=== PATIENT | female | born 1995 | race Caucasian/White ===

== ENCOUNTER 2020-08-15 18:41 | Emergency (ER) | payer OTHER ==
[2020-08-15 19:16] LABS: BASOPHIL 0.5 % (0-2); EOSINOPHIL 3.9 % (0-5); HCT 40.1 % (37.0-47.0); HGB 13.5 g/dl (12.5-16.0); LYMPHOCYTE 31.7 % (15-48); MCH 31.9 pg (25.0-31.0); MCHC 33.7 g/dL (32.0-36.0); MCV 94.8 fL (78.0-100.0); MONOCYTE 7.8 % (0-12); MPV 12.1 fL (6.0-9.5); NEUTROPHIL 55.9 % (41-80); NRBC 0; PLT 148 K/uL (150-400); RBC 4.23 M/uL (4.20-5.40); RDW 11.9 % (11.5-14.0); WBC 5.7 K/uL (4.0-10.5)
[2020-08-15 19:32] LABS: ALBUMIN 3.2 g/dL (3.4-5.0); BILIRUBIN - TOTAL 0.2 mg/dL (0.2-1.0); BUN/CREAT RATIO (CALC) 27.4 RATIO; CREATININE 0.62 mg/dL (0.51-0.95); DEPAKENE/VALPROIC ACID 103.9 ug/mL (50.0-100.0); MAGNESIUM 1.5 mg/dL (1.8-2.4); POTASSIUM 3.9 mmol/L (3.5-5.1); TOTAL PROTEIN 7.2 g/dL (6.4-8.2)
[2020-08-15 22:30] LABS: BILIRUBIN NEGATIVE (NEGATIVE); BLOOD NEGATIVE Ery/uL (NEGATIVE); CLARITY CLEAR (CLEAR); COLOR YELLOW (YELLOW); GLUCOSE (U) NORMAL (NORMAL); LEUKOCYTES NEGATIVE Leu/uL (NEGATIVE); NITRITE NEGATIVE (NEGATIVE); PROTEIN NEGATIVE (NEGATIVE); SPECIFIC GRAVITY 1.025 (1.001-1.030)
== END 2020-08-16 01:44 | disposition other institution (70) ==
LOC: FER 18:41
PROVIDERS: Emergency Medicine Emergency Medical Services
DX: G40.109 Localization-related (focal) (partial) symptomatic epilepsy and epileptic syndromes with simple partial seizures, not intractable, without status epilepticus (principal); Z79.899 Other long term (current) drug therapy; Z88.8 Allergy status to other drugs, medicaments and biological substances
CPT/HCPCS: 36415; 80053; 80164; 81003; 83735; 85025; 93005; J2060; J7030

== ENCOUNTER 2020-09-10 18:40 | Emergency (ER) | payer OTHER | END 2020-09-10 20:30 | disposition other institution (70) | LOC: FER 18:40 | DX: G40.909 Epilepsy, unspecified, not intractable, without status epilepticus (principal); Z88.8 Allergy status to other drugs, medicaments and biological substances | CPT/HCPCS: J2060 ==

== ENCOUNTER 2021-01-24 18:12 | Emergency (ER) | payer OTHER ==
[2021-01-24 19:37] LABS: BASOPHIL 0.2 % (0-2); EOSINOPHIL 0.1 % (0-5); HCT 40.4 % (37.0-47.0); HGB 12.7 g/dl (12.5-16.0); MCH 25.7 pg (25.0-31.0); MCHC 31.4 g/dL (32.0-36.0); MCV 81.8 fL (78.0-100.0); MONOCYTE 5.1 % (0-12); MPV 11.5 fL (6.0-9.5); NEUTROPHIL 89.7 % (41-80); NRBC 0; PLT 244 K/uL (150-400); RBC 4.94 M/uL (4.20-5.40); RDW 17.6 % (11.5-14.0); WBC 16.2 K/uL (4.0-10.5)
[2021-01-24 19:49] LABS: INR 1.12 (0.9-1.2); PROTHROMBIN TIME 13.8 SECONDS (11.8-13.4); PTT 33.9 SECONDS (24.4-34.7)
[2021-01-24 19:54] LABS: ALBUMIN 3.1 g/dL (3.4-5.0); BILIRUBIN - TOTAL 0.2 mg/dL (0.2-1.0); BUN/CREAT RATIO (CALC) 36.7 RATIO; CREATININE 0.3 mg/dL (0.51-0.95); GLOBULIN (CALCULATION) 4.7 g/dL; MAGNESIUM 1.3 mg/dL (1.8-2.4); POTASSIUM 3.8 mmol/L (3.5-5.1); TOTAL PROTEIN 7.8 g/dL (6.4-8.2)
[2021-01-24] MEDS ORDERED: KEFLEX250 MG/5 M PO (22:36)
[2021-01-24] MEDS ORDERED: CLINDAMYCI75 MG/5 M1 GT (22:36)
== END 2021-01-24 23:19 | disposition home or self-care (01) ==
LOC: FER 18:12
PROVIDERS: Emergency Medicine
DX: R06.02 Shortness of breath (principal); Z20.822 Contact with and (suspected) exposure to COVID-19; Z88.8 Allergy status to other drugs, medicaments and biological substances
CPT/HCPCS: 36415; 71045; 80053; 83735; 84145; 85025; 85610; 85730; 87040; J2543; U0002

== ENCOUNTER 2021-03-25 11:59 | Emergency (ER) | payer OTHER ==
[~2021-03-25 11:59] MED LIST: CLINDAMYCI75 MG/5 M1 GT; KEFLEX250 MG/5 M PO
[2021-03-25 13:39] LABS: BASOPHIL 0.2 % (0-2); EOSINOPHIL 0.5 % (0-5); HCT 45.8 % (37.0-47.0); LYMPHOCYTE 13.1 % (15-48); MCH 29.5 pg (25.0-31.0); MCHC 32.8 g/dL (32.0-36.0); MCV 90.2 fL (78.0-100.0); MONOCYTE 7.4 % (0-12); MPV 12.9 fL (6.0-9.5); NEUTROPHIL 78.5 % (41-80); NRBC 0; PLT 200 K/uL (150-400); RBC 5.08 M/uL (4.20-5.40); RDW 18.1 % (11.5-14.0)
[2021-03-25 13:55] LABS: ALBUMIN 3.6 g/dL (3.4-5.0); BILIRUBIN - TOTAL 0.2 mg/dL (0.2-1.0); CREATININE 0.36 mg/dL (0.51-0.95); GLOBULIN (CALCULATION) 4.8 g/dL; POTASSIUM 4.3 mmol/L (3.5-5.1); TOTAL PROTEIN 8.4 g/dL (6.4-8.2)
[2021-03-25 13:57] LABS: LACTIC ACID 1.1 mmol/L (0.4-1.9)
[2021-03-25 14:41] LABS: BILIRUBIN NEGATIVE (NEGATIVE); BLOOD NEGATIVE Ery/uL (NEGATIVE); CLARITY CLEAR (CLEAR); COLOR YELLOW (YELLOW); GLUCOSE (U) NORMAL (NORMAL); LEUKOCYTES NEGATIVE Leu/uL (NEGATIVE); NITRITE NEGATIVE (NEGATIVE); PROTEIN NEGATIVE (NEGATIVE); UROBILINOGEN 0.2 mg/dL (0.2-1.0)
== END 2021-03-25 16:44 | disposition home or self-care (01) ==
LOC: FER 11:59
PROVIDERS: Emergency Medicine
DX: B34.9 Viral infection, unspecified (principal); Z20.822 Contact with and (suspected) exposure to COVID-19; Z88.1 Allergy status to other antibiotic agents
CPT/HCPCS: 36415; 36600; 71045; 80053; 81003; 82803; 83605; 84145; 85025; 87040; 87088; 94762; U0002

== ENCOUNTER 2021-08-20 21:34 | Emergency (ER) | payer OTHER ==
[2021-08-20 23:04] LABS: BASOPHIL 0.5 % (0-2); EOSINOPHIL 2.4 % (0-5); HCT 47.8 % (37.0-47.0); HGB 15.9 g/dl (12.5-16.0); LYMPHOCYTE 25.7 % (15-48); MCH 32.4 pg (25.0-31.0); MCHC 33.3 g/dL (32.0-36.0); MCV 97.6 fL (78.0-100.0); MONOCYTE 6.9 % (0-12); MPV 12.1 fL (6.0-9.5); NRBC 0; PLT 197 K/uL (150-400); RDW 13.3 % (11.5-14.0); WBC 4.2 K/uL (4.0-10.5)
[2021-08-20 23:10] LABS: BILIRUBIN NEGATIVE (NEGATIVE); BLOOD NEGATIVE Ery/uL (NEGATIVE); CLARITY CLEAR (CLEAR); COLOR YELLOW (YELLOW); GLUCOSE (U) NORMAL (NORMAL); LEUKOCYTES NEGATIVE Leu/uL (NEGATIVE); NITRITE NEGATIVE (NEGATIVE); PROTEIN NEGATIVE (NEGATIVE); SPECIFIC GRAVITY 1.015 (1.001-1.030); UROBILINOGEN 0.2 mg/dL (0.2-1.0); pH 7.5 (5.0-9.0)
[2021-08-20 23:22] LABS: ALBUMIN 2.8 g/dL (3.4-5.0); BILIRUBIN - TOTAL 0.1 mg/dL (0.2-1.0); BUN/CREAT RATIO (CALC) 53.8 RATIO; CREATININE 0.26 mg/dL (0.51-0.95); GLOBULIN (CALCULATION) 4.8 g/dL; POTASSIUM 5.1 mmol/L (3.5-5.1); TOTAL PROTEIN 7.6 g/dL (6.4-8.2)
[2021-08-20 23:27] LABS: LACTIC ACID 2.3 mmol/L (0.4-1.9)
[2021-08-20 23:50] LABS: INFLUENZA A NAA NEGATIVE (NEGATIVE)
[2021-08-20 23:52] LABS: CORONAVIRUS 2019 SARS-COV-2 POSITIVE (NEGATIVE)
== END 2021-08-21 10:33 | disposition other institution (70) ==
LOC: FER 21:34
PROVIDERS: Internal Medicine
DX: A41.9 Sepsis, unspecified organism (principal); R65.20 Severe sepsis without septic shock; J96.01 Acute respiratory failure with hypoxia; U07.1 COVID-19; J12.82 Pneumonia due to coronavirus disease 2019; T68.XXXA Hypothermia, initial encounter; K59.00 Constipation, unspecified; G40.909 Epilepsy, unspecified, not intractable, without status epilepticus; Z23 Encounter for immunization; Z79.899 Other long term (current) drug therapy
CPT/HCPCS: 36415; 36600; 71250; 74018; 80053; 81003; 82803; 83605; 83690; 83880; 84145; 84443; 85025; 87040; 87070; 87205; 96365; 96367; 96375; 96376; C1751; C9113; C9399; J1100; J1650; J2060; J2543; J7030; J7050; U0002

== ENCOUNTER 2021-09-18 13:39 | Inpatient (IN) | payer OTHER ==
[~2021-09-18] VITALS: Ht 175.3 cm; Wt 96.8 kg
[2021-09-18 15:02] LABS: ALBUMIN 2.9 g/dL (3.4-5.0); BILIRUBIN - TOTAL 0.3 mg/dL (0.2-1.0); BUN/CREAT RATIO (CALC) 35.7 RATIO; CREATININE 0.42 mg/dL (0.51-0.95); GLOBULIN (CALCULATION) 5.3 g/dL; POTASSIUM 4.6 mmol/L (3.5-5.1); TOTAL PROTEIN 8.2 g/dL (6.4-8.2)
[2021-09-18 15:09] LABS: BASOPHIL 0.2 % (0-2); EOSINOPHIL 0 % (0-5); HCT 45.5 % (37.0-47.0); HGB 15.1 g/dl (12.5-16.0); LYMPHOCYTE 1.9 % (15-48); MCH 31.9 pg (25.0-31.0); MCHC 33.2 g/dL (32.0-36.0); MCV 96.2 fL (78.0-100.0); MONOCYTE 3.7 % (0-12); MPV 11.9 fL (6.0-9.5); NEUTROPHIL 93.5 % (41-80); NRBC 0; PLT 255 K/uL (150-400); RBC 4.73 M/uL (4.20-5.40); RDW 13.3 % (11.5-14.0)
[2021-09-18 15:16] LABS: WBC 25.7 K/uL (4.0-10.5)
[2021-09-18 15:22] LABS: LACTIC ACID 2.4 mmol/L (0.4-1.9)
[2021-09-18 17:41] LABS: BAND 6 % (0-10); LYMPHOCYTE(M) 1 % (15-48); MONOCYTE(M) 1 % (0-12); NEUTROPHILS(M) 92 % (41-80); TOTAL CELL COUNT 100
[2021-09-18 17:42] LABS: PLATELET ESTIMATE NORMAL; PLATELET MORPHOLOGY NORMAL
[2021-09-18 18:36] LABS: BILIRUBIN NEGATIVE (NEGATIVE); BLOOD NEGATIVE Ery/uL (NEGATIVE); CLARITY CLEAR (CLEAR); COLOR YELLOW (YELLOW); GLUCOSE (U) 2+ mg/dL (NORMAL); LEUKOCYTES NEGATIVE Leu/uL (NEGATIVE); NITRITE NEGATIVE (NEGATIVE); PROTEIN 2+ mg/dL (NEGATIVE); UROBILINOGEN 0.2 mg/dL (0.2-1.0)
[2021-09-18 19:10] LABS: BACTERIA TRACE
[2021-09-18 19:11] LABS: TRANSITIONAL EPITHELIAL CELLS RARE
[2021-09-19] MEDS ORDERED: LOPRESSOR25 MG GT (00:41)
[2021-09-19] MEDS ORDERED: BRIVIACT100 MG GT (00:45)
[2021-09-19] MEDS ORDERED: VIMPAT200 MG GT (00:46)
[2021-09-19] MEDS ORDERED: STOOL SOFTENER100 M1 GT (00:48)
[2021-09-19] MEDS ORDERED: CLONAZEPAM 1MG T1 MG GT (00:49)
[2021-09-19] MEDS ORDERED: ATIVAN1 MG GT (01:52)
[2021-09-19] MEDS ORDERED: MIRALAX17 GM PO (01:53)
[2021-09-19] MEDS ORDERED: MELATONIN5 M2 GT (01:53)
[2021-09-19] MEDS ORDERED: FYCOMPA8 MG GT (01:54)
[2021-09-19] MEDS ORDERED: DILANTIN 1125 MG/5 M GT ×2 (01:55→01:58)
[2021-09-19] MEDS ORDERED: PHENOBARBITAL30 MG GT (01:55)
[2021-09-19] MEDS ORDERED: MODAFINIL100 MG GT (01:56)
[2021-09-19] MEDS ORDERED: OSTERA TABLET1 EACH GT (01:57)
[2021-09-19] MEDS ORDERED: CLOBAZAM10 MG GT (01:58)
--- NOTE | 2021-09-19 10:14 | NUR ---
09/19/21 Ms. Worley Is a single 25 y/o woman admitted with dx of COVID pneumonia. 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 She lives with her mother, Abbey Daniel, . Ms. Worley has: feeding tube, neck brace, wc, ramps, accessible van / bathroom, stair lift, specialty bed, wc, suction machine, precussion vest, 02 at 2 L , and portable tanks. She is receiving services from [facility] - [facility] program. She has the Community Based Waiver and is the on the waiting list for [facility]gar[facility]. Case management is provided through [facility]. - Ms. Worley has requested assistance is getting a pulse-oximeter alarm. - [facility] does not stock this item. However, they will inquire if they can get the alarm. - Ms. Daniel was provided with the following resources: [facility], [facility], and [facility].
--- NOTE | 2021-09-20 01:18 | NUR ---
ATTN PHARM: THERE ARE 2 MEDS IN PT BIN (ICU MED CAB BIN BY [facility]) THAT NEED LABELS; VIMPAT & FYCOMPA. THERE ARE ALSO MORE DRUGS IN LOCKED DRAWER ON MED SURG ON [address] WITH HIGHER NUMBERED ROOMS. SEE HOUSE SUP/KENRICK IF QUESTIONS. THESE NEED TO BE LABELED FOR USE OR RETURNED TO MOM SHE VISITS DAILY.
[2021-09-20 06:19] LABS: BASOPHIL 0.4 % (0-2); EOSINOPHIL 0.6 % (0-5); HCT 36.8 % (37.0-47.0); HGB 12.4 g/dl (12.5-16.0); LYMPHOCYTE 20.1 % (15-48); MCH 32.4 pg (25.0-31.0); MCHC 33.7 g/dL (32.0-36.0); MCV 96.1 fL (78.0-100.0); MONOCYTE 7.6 % (0-12); MPV 11.7 fL (6.0-9.5); NRBC 0; PLT 215 K/uL (150-400); RBC 3.83 M/uL (4.20-5.40); RDW 13.1 % (11.5-14.0); WBC 6.9 K/uL (4.0-10.5)
[2021-09-20 06:41] LABS: BUN/CREAT RATIO (CALC) 45.2 RATIO; CREATININE 0.31 mg/dL (0.51-0.95); POTASSIUM 3.8 mmol/L (3.5-5.1)
--- NOTE | 2021-09-20 09:15 | NUR ---
0915- THIS RN ENTERS ROOM TO GIVE THE REST OF PATIENT MEDICATIONS AND NOTES INCREASE IN ABDOMINAL BREATHING, INCREASED RR TO 45/MIN, LARGE AMOUNTS OF YELLOW AND RED MUCOUS FROM MOUTH AND TUBE FEED PUMP ALARMING "FEED COMPLETE". THIS RN TURNED OFF TUBE FEED PUMP, COUNTED RR, AND CALLED [facility] AT 0920. SBAR WAS USED WHEN NOTIFIYING THE MD 0920. MD WAS NOTIFIED THAT PATIENT RR WAS GREATER THAN 40/MIN WITH OXYGEN ON 4L NASAL CANNULA. VITALS SIGNS WERE THEN TAKEN AND WERE 138/61 HR 102 TEMP 101.6 AXILLARY RR 45 O2 93%. MD ORDERED CHEST XRAY, OXIMIZER 6L, DEEP NT SUCTIONING BY RT, ABG'S, PEG TUBE TO LOW WALL INTERMITTENT SUCTION. 120ML WAS SUCTIONED FROM G TUBE. PATIENT MONITORED WITH 30 MINUTE VITALS AND REASSESSMENT.
--- NOTE | 2021-09-20 11:15 | NUR ---
REASSESSMENT OF PATIENT, BREATHING SHALLOW, RR 25 O2 99% BP 116/56 HR 82. ORAL CARE AND SUCTION PROVIDED.
[2021-09-21 06:07] LABS: BASOPHIL 0.9 % (0-2); HCT 39.1 % (37.0-47.0); LYMPHOCYTE 46.9 % (15-48); MCH 31.6 pg (25.0-31.0); MCHC 33.2 g/dL (32.0-36.0); MCV 94.9 fL (78.0-100.0); MONOCYTE 11.4 % (0-12); MPV 10.5 fL (6.0-9.5); NEUTROPHIL 38.5 % (41-80); NRBC 0; PLT 187 K/uL (150-400); RBC 4.12 M/uL (4.20-5.40); RDW 12.9 % (11.5-14.0); WBC 3.5 K/uL (4.0-10.5)
[2021-09-21 06:26] LABS: BUN/CREAT RATIO (CALC) 17.1 RATIO; C-REACTIVE PROTEIN 7.1 mg/dL (<=0.90); CREATININE 0.41 mg/dL (0.51-0.95); POTASSIUM 3.2 mmol/L (3.5-5.1)
--- NOTE | 2021-09-21 08:28 | NUR ---
VERBAL ORDER TO RESUME TUBE FEEDS THIS AM. 400 ML BOLUS JEVITY 1.2 ADMINISTERED BY GRAVITY AT 0815. 200 ML FLUSH GIVEN AFTER MEAL. HOB AT 35 DEGREES. NO SIGNS OF DISTRESS NOTED.
--- NOTE | 2021-09-21 18:44 | NUR ---
PT RESTING IN BED WITH MOTHER AT BEDSIDE. PT OPENS EYES AND LOOKS AROUND ROOM WHEN ROOM ENTERED. PT HAS NO SIGNS OF DISTRESS NOTED.
[2021-09-22 06:14] LABS: BASOPHIL 0.7 % (0-2); EOSINOPHIL 1.9 % (0-5); HCT 39.1 % (37.0-47.0); LYMPHOCYTE 20.8 % (15-48); MCH 32.1 pg (25.0-31.0); MCHC 33.2 g/dL (32.0-36.0); MCV 96.5 fL (78.0-100.0); MONOCYTE 12.9 % (0-12); MPV 10.7 fL (6.0-9.5); NEUTROPHIL 63.3 % (41-80); NRBC 0; PLT 229 K/uL (150-400); RBC 4.05 M/uL (4.20-5.40); RDW 13.2 % (11.5-14.0)
[2021-09-22 06:17] LABS: WBC 7.5 K/uL (4.0-10.5)
[2021-09-22 06:22] LABS: BUN/CREAT RATIO (CALC) 15.9 RATIO; CREATININE 1.07 mg/dL (0.51-0.95); POTASSIUM 3.8 mmol/L (3.5-5.1)
--- NOTE | 2021-09-22 12:30 | NUR ---
TUBE FEED GIVEN 1203 400 ML TO GRAVITY JEVITY 1.2
--- NOTE | 2021-09-22 15:43 | NUR ---
09/22/21 Ms. Daniel, mother, has requested an alarming pulse oximeter. [facility] does not provide this DME. A referral was made to [facility], , per ms. Daniel's request. Maddison, will call Ms. Daniel to discuss the specific device. Clinicals were faxed.
--- NOTE | 2021-09-22 22:13 | NUR ---
FAMILY NOTIFIED OF CLASS RING ON LEFT RING FINGER TAKEN OFF, PT HANDS SWOLLEN, PT TOLERATED WELL, CLASS RING PLACED IN PTS BELONGINGS BAG OF PILLS, PT MOTHER ASHLEY NOTIFIED OF REMOVAL AND LOCATION OF RING, PRANAV CAMACHO VERIFIED PLACEMENT
[2021-09-23 05:47] LABS: BASOPHIL 0.4 % (0-2); EOSINOPHIL 1.2 % (0-5); HCT 37.8 % (37.0-47.0); HGB 12.8 g/dl (12.5-16.0); LYMPHOCYTE 19.7 % (15-48); MCH 32.4 pg (25.0-31.0); MCHC 33.9 g/dL (32.0-36.0); MCV 95.7 fL (78.0-100.0); MONOCYTE 11.1 % (0-12); MPV 10.8 fL (6.0-9.5); NEUTROPHIL 67.3 % (41-80); NRBC 0; PLT 241 K/uL (150-400); RBC 3.95 M/uL (4.20-5.40); RDW 13.3 % (11.5-14.0); WBC 6.9 K/uL (4.0-10.5)
[2021-09-23 06:08] LABS: BUN/CREAT RATIO (CALC) 17.4 RATIO; CREATININE 1.09 mg/dL (0.51-0.95); POTASSIUM 4.3 mmol/L (3.5-5.1)
[2021-09-23] MEDS ORDERED: CLEOCIN300 MG PO (13:40)
[2021-09-23] MEDS ORDERED: DIFLUCAN150 MG PO (13:40)
--- NOTE | 2021-09-23 15:22 | NUR ---
PT STABLE AT TIME OF DISCHARGE,IV REMOVED, HOME MEDICATIONS PULLED FROM PYXIS AND PATIENT BIN AND SENT HOME WITH FATHER. WHEEL CHAIR AND BELONGS SENT HOME WITH HER FATHER LIFT WAS USED TO GET PT IN HER WHEEL CHAIR
== END 2021-09-23 15:06 | disposition home or self-care (01) | DRG 871 ==
LOC: FER 13:39 → FTCU 22:42
PROVIDERS: Allergy & Immunology Allergy; Emergency Medicine; ADMIT Internal Medicine
PROC: 3E03329 Introduction of Other Anti-infective into Peripheral Vein, Percutaneous Approach (ICD-10-PCS; principal; 2021-09-19)
PROC: 3E0333Z Introduction of Anti-inflammatory into Peripheral Vein, Percutaneous Approach (ICD-10-PCS; 2021-09-19)
PROC: 8E0ZXY6 Isolation (ICD-10-PCS; 2021-09-19)
DX: A41.9 Sepsis, unspecified organism (principal); J15.9 Unspecified bacterial pneumonia; J69.0 Pneumonitis due to inhalation of food and vomit; U07.1 COVID-19; J96.21 Acute and chronic respiratory failure with hypoxia; I69.251 Hemiplegia and hemiparesis following other nontraumatic intracranial hemorrhage affecting right dominant side; B37.0 Candidal stomatitis; G40.909 Epilepsy, unspecified, not intractable, without status epilepticus; L89.626 Pressure-induced deep tissue damage of left heel; R73.9 Hyperglycemia, unspecified; T43.625A Adverse effect of amphetamines, initial encounter; Z74.01 Bed confinement status; Z93.1 Gastrostomy status; Z98.890 Other specified postprocedural states; Z79.899 Other long term (current) drug therapy; Z28.310 Unvaccinated for COVID-19
CPT/HCPCS: 36415; 36600; 71045; 71275; 80048; 80053; 80202; 81001; 82803; 82962; 83605; 84145; 85025; 86140; 87040; 87088; J0456; J0696; J1100; J1650; J2543; J3370; J7030; J7050; J7120; J8540; Q9967; U0002

== ENCOUNTER 2021-09-26 01:29 | Emergency (ER) | payer OTHER ==
[~2021-09-26 01:29] MED LIST changes: +ATIVAN1 MG GT; +BRIVIACT100 MG GT; +CLEOCIN300 MG PO; +CLOBAZAM10 MG GT; +CLONAZEPAM 1MG T1 MG GT; +DIFLUCAN150 MG PO; +DILANTIN 1125 MG/5 M GT; +FYCOMPA8 MG GT; +LOPRESSOR25 MG GT; +MELATONIN5 M2 GT; +MIRALAX17 GM PO; +MODAFINIL100 MG GT; +OSTERA TABLET1 EACH GT; +PHENOBARBITAL30 MG GT; +STOOL SOFTENER100 M1 GT; +VIMPAT200 MG GT
[2021-09-26 02:08] LABS: BASOPHIL 0.2 % (0-2); HCT 44.1 % (37.0-47.0); HGB 14.6 g/dl (12.5-16.0); LYMPHOCYTE 7.4 % (15-48); MCH 32.4 pg (25.0-31.0); MCHC 33.1 g/dL (32.0-36.0); MONOCYTE 3.8 % (0-12); MPV 11.5 fL (6.0-9.5); NEUTROPHIL 86.8 % (41-80); NRBC 0; PLT 333 K/uL (150-400); RDW 13.2 % (11.5-14.0); WBC 14.4 K/uL (4.0-10.5)
[2021-09-26 02:42] LABS: ALBUMIN 2.6 g/dL (3.4-5.0); BILIRUBIN - TOTAL 0.2 mg/dL (0.2-1.0); BUN/CREAT RATIO (CALC) 30.7 RATIO; CREATININE 0.75 mg/dL (0.51-0.95); GLOBULIN (CALCULATION) 6.1 g/dL; POTASSIUM 4.8 mmol/L (3.5-5.1); TOTAL PROTEIN 8.7 g/dL (6.4-8.2)
[2021-09-26 02:46] LABS: LACTIC ACID 1.9 mmol/L (0.4-1.9)
[2021-09-26 03:02] LABS: BILIRUBIN NEGATIVE (NEGATIVE); BLOOD NEGATIVE Ery/uL (NEGATIVE); CLARITY CLEAR (CLEAR); COLOR YELLOW (YELLOW); GLUCOSE (U) NORMAL (NORMAL); LEUKOCYTES NEGATIVE Leu/uL (NEGATIVE); NITRITE NEGATIVE (NEGATIVE); PROTEIN NEGATIVE (NEGATIVE); UROBILINOGEN 0.2 mg/dL (0.2-1.0); pH 6.5 (5.0-9.0)
[2021-09-26 05:55] LABS: CORONAVIRUS 2019 SARS-COV-2 NEGATIVE (NEGATIVE); INFLUENZA A NAA NEGATIVE (NEGATIVE)
== END 2021-09-26 08:10 | disposition other institution (70) ==
LOC: FER 01:29
PROVIDERS: Internal Medicine
DX: A41.9 Sepsis, unspecified organism (principal); R65.20 Severe sepsis without septic shock; J69.0 Pneumonitis due to inhalation of food and vomit; J96.00 Acute respiratory failure, unspecified whether with hypoxia or hypercapnia; Z88.8 Allergy status to other drugs, medicaments and biological substances; Z20.822 Contact with and (suspected) exposure to COVID-19
CPT/HCPCS: 31500; 36415; 36600; 70450; 71045; 71250; 80053; 81003; 82803; 83605; 83880; 84145; 84484; 85025; 87040; 93005; 96365; 96366; 96367; 96376; J2543; J2704; J3370; J7030; J7050; U0002